=== PATIENT | female | born 1990 | race Caucasian/White ===

== ENCOUNTER → 2017-02-03 | Outpatient (CLI) | payer OTHER | LOC: COL.RAD 10:06 | DX: K76.0 Fatty (change of) liver, not elsewhere classified (principal); K30 Functional dyspepsia ==

== ENCOUNTER → 2020-03-23 | Outpatient (CLI) | payer BC | LOC: COL.RAD 07:33 | DX: J32.0 Chronic maxillary sinusitis (principal) ==